=== PATIENT | female | born 1985 | race African-American/Black ===

== ENCOUNTER 2018-06-07 12:49 | Emergency (ER) | payer OTHER ==
[2018-06-07 13:00] VITALS: BP 129/80; PULSE 76; TEMP 98.8; BMI 33.3
== END 2018-06-07 15:00 | disposition home or self-care (01) ==
LOC: JER 12:49
PROC: 3E033NZ Introduction of Analgesics, Hypnotics, Sedatives into Peripheral Vein, Percutaneous Approach (ICD-10-PCS; principal; 2018-06-07)
PROC: 3E033GC Introduction of Other Therapeutic Substance into Peripheral Vein, Percutaneous Approach (ICD-10-PCS; 2018-06-07)
DX: O26.891 Other specified pregnancy related conditions, first trimester (principal); O20.0 Threatened abortion; Z3A.01 Less than 8 weeks gestation of pregnancy
CPT/HCPCS: 96374; 96375; 99281-25

== ENCOUNTER 2018-06-07 18:49 | Emergency (ER) | payer OTHER ==
[2018-06-07] MEDS ORDERED: SODIUM CHLORIDE 1,000 ML IV STA (19:09)
[2018-06-07] MEDS ORDERED: METOCLOPRAMIDE HCL INJECTION 10 MG/2 ML VIAL IVPUSH ONE (19:09)
[2018-06-07] MEDS ORDERED: ACETAMINOPHEN 1000 MG/100 ML VIAL (NON FORMULARY) IVPB ONE (19:09)
[2018-06-07] MEDS ORDERED: ACETAMINOPHEN INJECTION 100 ML IVPB ONE (19:34)
[2018-06-07 19:36] VITALS: BP 122/81; PULSE 74; TEMP 98.1; BMI 33.3
[2018-06-07 19:45] LABS: BASO % 1.7 % (0-2.0); EOS % 5.3 % (0-4.5); HEMATOCRIT 33.9 % (32.4-45.2); HEMOGLOBIN 11.1 GM/dl (10.7-15.3); LYMPH % 30.3 % (8-40); MCH 27.2 pg (25.7-33.7); MCHC 32.6 g/dl (32.0-36.0); MEAN CELL VOLUME 83.2 fl (80-96); MEAN PLT VOLUME 8.3 fl (7.5-11.1); MONO % 7.5 % (3.8-10.2); NEUT % 55.2 % (42.8-82.8); PLATELET COUNT 439 K/MM3 (134-434); RBC 4.07 M/mm3 (3.60-5.2); RDW 17.7 % (11.6-15.6); URINE APPEARANCE Clear; URINE BILIRUBIN Negative (NEGATIVE); URINE COLOR Yellow; URINE GLUCOSE (UA) Negative (NEGATIVE); URINE KETONE Negative (NEGATIVE); URINE LEUK ESTERASE Negative (NEGATIVE); URINE NITRITE Negative (NEGATIVE); URINE PROTEIN Negative (NEGATIVE); URINE UROBILINOGEN 0.2 (0.2-1.0); WHITE BLOOD COUNT 7.2 K/mm3 (4.0-10.8)
[2018-06-07 19:57] LABS: ALBUMIN 3.8 g/dl (3.5-5.0); ALK PHOS 58 U/L (32-92); ANION GAP 5 MMOL/L (8-16); BILIRUBIN,TOTAL 0.8 mg/dl (0.2-1.0); BLOOD UREA NITROGEN 14 mg/dl (7-18); CHLORIDE 104 mmol/L (98-107); CO2 24 mmol/L (22-28); CREATININE 0.7 mg/dl (0.6-1.3); GLUCOSE,RANDOM 89 mg/dl (74-106); POTASSIUM 4.1 mmol/L (3.5-5.1); SGOT/AST 25 U/L (10-42); SGPT/ALT 21 U/L (10-40); SODIUM 133 mmol/L (136-145); TOT PROT 7.7 g/dl (6.4-8.3)
--- NOTE | 2018-06-07 19:58 | PDOC ---
History of Present Illness - History of Present Illness Initial Comments: 06/07/18 20:22 The patient is a 33 year old female with no past medical history who presents to the ED with complaints of lower abdominal cramping and vaginal bleeding that began this morning. The patient reports a sharp, non-radiating pain in her lower abdomen as well as passing large clots today. Although she reports the bleeding has stopped she is still experiencing a lot of pain. She also reports some associated lightheadedness. She reports one prior which was normal and resulted in a full term, vaginal delivery despite some complications during labor. She also reports having hypertension through her . LMP was 05/29. [facility] She denies any recent illness, fevers, chills, nausea, vomiting, diarrhea , cough, SOB, chest pain, or urinary symptoms. <Melanie Marquez - Last Filed: 06/07/18 20:21> - General History Source: Patient Exam Limitations: No Limitations <Lei Pardo - Last Filed: 06/07/18 22:58> - General Chief Complaint: Nausea Stated Complaint: DIZZINESS,NAUSEA, Time Seen by Provider: 06/07/18 19:02 Past History <Melanie Marquez - Last Filed: 06/07/18 20:21> - Past Medical History Asthma: Yes COPD: No - Surgical History Abdominal Surgery: Yes (SLEEVE) - Reproductive History (#): 1 Para: 0 Spontaneous : 0 - Suicide/Smoking/Psychosocial Hx Smoking Status: No Smoking History: Never smoked Have you smoked in the past 12 months: No Number of Cigarettes Smoked Daily: 0 Hx Alcohol Use: No Drug/Substance Use Hx: No Substance Use Type: None <Lei Pardo - Last Filed: 06/07/18 22:58> - Past Medical History Allergies/Adverse Reactions: Allergies Allergy/AdvReac Type Severity Reaction Status Date / Time No Known Allergies Allergy Verified 06/07/18 19:04 Home Medications: Ambulatory Orders Acetaminophen [Tylenol] 650 mg PO Q4H PRN #20 tablet 06/07/18 Metoclopramide HCl [Reglan] 10 mg PO Q8H PRN #15 tablet 06/07/18 Vit Calc,Iron,Folic [ Vitamins] 1 each PO DAILY #30 tablet 09/ 24/18 Review of Systems - Review of Systems Able to Perform ROS?: Yes Comments:: 06/07/18 20:22 GENERAL/CONSTITUTIONAL: No fever or chills. No weakness. HEAD, EYES, EARS, NOSE AND THROAT: No change in vision. No ear pain or discharge. No sore throat. CARDIOVASCULAR: No chest pain or shortness of breath. RESPIRATORY: No cough, wheezing, or hemoptysis. GASTROINTESTINAL: (+) lower abdominal pain. No nausea, vomiting, diarrhea or constipation. GENITOURINARY: (+) vaginal bleeding. No dysuria, frequency, or change in urination. MUSCULOSKELETAL: No joint or muscle swelling or pain. No neck or back pain. SKIN: No rash NEUROLOGIC: (+) lightheadedness. No headache, vertigo, loss of consciousness, or change in strength/sensation. ENDOCRINE: No increased thirst. No abnormal weight change. HEMATOLOGIC/LYMPHATIC: No anemia, easy bleeding, or history of blood clots. ALLERGIC/IMMUNOLOGIC: No hives or skin allergy. <Melanie Marquez - Last Filed: 06/07/18 20:21> *Physical Exam - Vital Signs Last Vital Signs Temp Pulse Resp BP Pulse Ox 98.1 F 74 18 122/81 100 06/07/18 18:52 06/07/18 18:52 06/07/18 18:52 06/07/18 18:52 06/07/18 18:52 <AntonbritneyMelanie - Last Filed: 06/07/18 20:21> - Vital Signs Last Vital Signs Temp Pulse Resp BP Pulse Ox 98.1 F 74 18 122/81 100 06/07/18 18:52 06/07/18 18:52 06/07/18 18:52 06/07/18 18:52 06/07/18 18:52 <Lei Pardo - Last Filed: 06/07/18 22:58> ED Treatment Course - LABORATORY CBC & Chemistry Diagram: 06/07/18 19:23 06/07/18 19:23 - ADDITIONAL ORDERS Additional order review: Laboratory Results 06/07/18 06/07/18 19:23 19:23 Sodium 133 L Potassium 4.1 Chloride 104 Carbon Dioxide 24 Anion Gap 5 L BUN 14 Creatinine 0.7 Creat Clearance w eGFR > 60 Random Glucose 89 Calcium 9.0 Total Bilirubin 0.8 AST 25 ALT 21 Alkaline Phosphatase 58 Creatine Kinase Cancelled Total Protein 7.7 Albumin 3.8 Urine Color Yellow Urine Appearance Clear Urine pH 7.0 Ur Specific Fleming 1.010 Urine Protein Negative Urine Glucose (UA) Negative Urine Ketones Negative Urine Blood Negative Urine Nitrite Negative Urine Bilirubin Negative Urine Urobilinogen 0.2 Ur Leukocyte Esterase Negative 06/07/18 19:23 RBC 4.07 MCV 83.2 MCHC 32.6 RDW 17.7 H MPV 8.3 Neutrophils % 55.2 Lymphocytes % 30.3 Monocytes % 7.5 Eosinophils % 5.3 H Basophils % 1.7 - Medications Given in the ED: ED Medications Discontinued Medications Generic Name Dose Route Start Last Admin Trade Name Freq PRN Reason Stop Dose Admin Acetaminophen 1,000 mg 06/07/18 19:09 06/07/18 20:11 Ofirmev Injection - IVPB 06/07/18 19:10 1,000 mg ONCE ONE Administration Sodium Chloride 1,000 mls @ 1,000 mls/hr 06/07/18 19:09 06/07/18 19:40 Normal Saline - IV 06/07/18 20:08 1,000 mls/hr ASDIR STA Administration Metoclopramide HCl 10 mg 06/07/18 19:09 06/07/18 19:40 Reglan Injection - IVPUSH 06/07/18 19:10 10 mg ONCE ONE Administration <Melanie Marquez - Last Filed: 06/07/18 20:21> - LABORATORY CBC & Chemistry Diagram: 06/07/18 19:23 06/07/18 19:23 - RADIOLOGY Radiology Studies Ordered: Category Date Time Status TRANSVAGINAL US PREG [US] Stat Ultrasound 06/07/18 19:09 Ordered <Lei Pardo - Last Filed: 06/07/18 22:58> Medical Decision Making - Medical Decision Making 06/07/18 19:24 A portion of this note was documented by scribe services under my direction. I have reviewed the details of the note, within reason, and agree with the documentation with the following case summary and management plan written by me. Patient treated in the ED. Nursing notes are reviewed and incorporated into the medical decision-making. Vital signs reviewed. Peripheral IV access obtained by the nurse, laboratory studies are drawn and sent, reviewed and interpreted by myself. Vital Signs Temp Pulse Resp BP Pulse Ox 98.1 F 74 18 122/81 100 06/07/18 18:52 06/07/18 18:52 06/07/18 18:52 06/07/18 18:52 06/07/18 18:52 33-year-old female patient with past medical history of hypertension presents with nausea, vomiting, lower abdominal cramping and vaginal bleeding. The patient reported that she found out last week that she was . Her LMP was 04/28/2018. She is typically regular. She is now ~5 to 6 weeks as per dates. Noted today that she was developing nausea and dizziness this morning. Developed lower abdominal/pelvic cramping and passed a few blood clots. The bleedig has now stopped. However, pt feels nauseous. No fevers, chills. Denies dysuria. Denies abdominal pain now. Has not had a OB checkup yet. Will need to investigate first trimester vaginal bleeding. Differential includes ectopic , miscarriage. Will check beta HCG, type and screen (for Rh factor), and transvaginal ultrasound. The nausea is likely secondary to her . Check labs, give IVF, and reassess. 06/07/18 22:50 CBC, BMP 06/07/18 19:23 06/07/18 19:23 CMP Sodium 133 mmol/L (136-145) L 06/07/18 19:23 Potassium 4.1 mmol/L (3.5-5.1) 06/07/18 19:23 Chloride 104 mmol/L (98-107) 06/07/18 19:23 Carbon Dioxide 24 mmol/L (22-28) 06/07/18 19:23 Anion Gap 5 MMOL/L (8-16) L 06/07/18 19:23 BUN 14 mg/dl (7-18) 06/07/18 19:23 Creatinine 0.7 mg/dl (0.6-1.3) 06/07/18 19:23 Creat Clearance w eGFR > 60 (>60) 06/07/18 19:23 Random Glucose 89 mg/dl (74-106) 06/07/18 19:23 Calcium 9.0 mg/dl (8.4-10.2) 06/07/18 19:23 Total Bilirubin 0.8 mg/dl (0.2-1.0) 06/07/18 19:23 AST 25 U/L (10-42) 06/07/18 19:23 ALT 21 U/L (10-40) 06/07/18 19:23 Alkaline Phosphatase 58 U/L (32-92) 06/07/18 19:23 Creatine Kinase Cancelled 06/07/18 19:23 Total Protein 7.7 g/dl (6.4-8.3) 06/07/18 19: Albumin 3.8 g/dl (3.5-5.0) 06/07/18 19:23 Beta HCG, Quant 3390.0 mIU/ml 06/07/18 19:23 Blood Type, Rh (Baby) Blood Type A POSITIVE 06/07/18 19:30 Urine Test Results Urine Color Yellow 06/07/18 19: Urine Appearance Clear 06/07/18 19: Urine pH 7.0 (4.5-8) 06/07/18 19: Ur Specific Fleming 1.010 (1.005-1.025) 06/07/18 19:23 Urine Protein Negative (NEGATIVE) 06/07/18 19:23 Urine Glucose (UA) Negative (NEGATIVE) 06/07/18 19:23 Urine Ketones Negative (NEGATIVE) 06/07/18 19: Urine Blood Negative (NEGATIVE) 06/07/18 19: Urine Nitrite Negative (NEGATIVE) 06/07/18 19: Urine Bilirubin Negative (NEGATIVE) 06/07/18 19:23 Ur Leukocyte Esterase Negative (NEGATIVE) 06/07/18 19:23 Ultrasound reviewed: Intraurterine gestational sac like structure with a mean sac diameter of 4.8 mm that corresponds to a less than 6 weeks of gestation. No pole or yolk sac are identified. Correlation with serial quantitative serum beta hCG and follow-up ultrasound is needed for further evaluation. At this moment, will treat this as a threatened . I advised the patient not to have sex or insert tampons. The patient reports that [facility] I advised that we need to have the results repeated in 48 hours given these ultrasound findings. Pt states that she understands and will bring a copy. Return precautions given including worsening vaginal bleeding or worsening abdominal pain. <Lei Pardo - Last Filed: 06/07/18 22:58> *DC/Admit/Observation/Transfer - Attestations Scribe Attestion: 06/07/18 20:23 Documentation prepared by Melanie Marquez, acting as medical chemist for Lei Pardo MD. <Melanie Marquez - Last Filed: 06/07/18 20:21> - Discharge Dispostion Decision to Admit order: No <Lei Pardo - Last Filed: 06/07/18 22:58> Diagnosis at time of Disposition: Threatened miscarriage - Discharge Dispostion Disposition: HOME Condition at time of disposition: Stable - Prescriptions Prescriptions: Acetaminophen [Tylenol] 650 mg PO Q4H PRN #20 tablet PRN Reason: Pain Metoclopramide HCl [Reglan] 10 mg PO Q8H PRN #15 tablet PRN Reason: Nausea Vit Calc,Iron,Folic [ Vitamins] 1 each PO DAILY #30 tablet - Referrals Referrals: Venkata Wolf MD [Staff Physician] - - Patient Instructions Printed Discharge Instructions: DI for Threatened Additional Instructions: Please bring your copy of the results including your ultrasound to your MERCHANDISE COORDINATOR doctor tomorrow or in two days. You will require a repeat blood work (beta HCG) and ultrasound to determine to see how your fetus/baby is doing in 2 days. At this time, do not have sex or insert tampons until you are cleared by your doctors. Take a daily vitamin. For pain, you may take tylenol as prescribed. For nausea, you may take a tablet of reglan as prescribed. These medications are safe for . Drink plenty of fluids and rest. If you develop worsening vaginal bleeding, severe abdominal pain, please return to the ER for further evaluation.
== END 2018-06-07 22:59 | disposition home or self-care (01) ==
LOC: FER 18:49
PROC: 3E033NZ Introduction of Analgesics, Hypnotics, Sedatives into Peripheral Vein, Percutaneous Approach (ICD-10-PCS; principal; 2018-06-07)
PROC: 3E033GC Introduction of Other Therapeutic Substance into Peripheral Vein, Percutaneous Approach (ICD-10-PCS; 2018-06-07)
PROC: 3E0337Z Introduction of Electrolytic and Water Balance Substance into Peripheral Vein, Percutaneous Approach (ICD-10-PCS; 2018-06-07)
DX: O26.891 Other specified pregnancy related conditions, first trimester (principal); Z3A.01 Less than 8 weeks gestation of pregnancy; O20.0 Threatened abortion
CPT/HCPCS: 36415; 76817-TC; 80053; 81003; 84702; 85025; 86850; 86900; 86901; 87077; 87086; 99283-25; J0131; J7030

== ENCOUNTER 2018-12-04 06:56 | Emergency (ER) | payer OTHER ==
[2018-12-04 07:01] VITALS: TEMP 97.5; BMI 38.9
--- NOTE | 2018-12-04 07:37 | PDOC ---
Attending Attestation - Resident Resident Name: James Medina - ED Attending Attestation I have performed the following: I have examined & evaluated the patient, The case was reviewed & discussed with the resident, I agree w/resident's findings & plan, Exceptions are as noted - HPI HPI: 12/04/18 08:15 Ms Pompa is a 33 yo F who presents to the ER due to abdominal cramping and nausea No fevers or chills Pt feels very nauseous but has not vomited She felt that she might have diarrhea but did not (she contacted her OB who recommended that she eat bananas and toast) She was concerned that perhaps she has the flu because he partner has the flu. she did have sharp abdominal pain on the right side of the abdomen, this has since subsided She continues to have abdominal cramping in the lower abdomen, rated 3-4/10, no radiation to her back - Physicial Exam PE: 12/04/18 07:32 GENERAL: The patient is in no acute distress. ENT: Ears normal, nares patent, oropharynx clear without exudates. Moist mucous membranes. NECK: Normal range of motion, supple, no nuchal rigidity LUNGS: Breath sounds equal, clear to auscultation bilaterally. No wheezes, and no crackles. HEART:Regular rate and rhythm, normal S1 and S2 without murmur, rub or gallop. ABDOMEN: gravid abdomen, abd otherwise soft, nontender, normoactive bowel sounds. EXTREMITIES: Normal range of motion, no edema. NEUROLOGICAL: Cranial nerves II through XII grossly intact. Normal speech. No focal neurological deficits. SKIN: Warm, Dry, normal turgor, no rashes or lesions noted. 12/04/18 08:18 - Medical Decision Making 12/04/18 07:35 This is a 33 yo 30 week who presents to the ER with a complaint of ABDOMINAL CRAMPING and nausea who was sent from [facility] to the ER for evaluation for INFLUENZA with NO fever, no body aches Pt apparently was assessed in L&D and child is apparently fine Will swab for influenza Possibly billiary pathology no fever to suggest acute appendicitis Pt continues to be nauseous Will do: Labs IVF Reglan RUQ US Po challenge 12/04/18 09:04 Laboratory Tests 12/04/18 12/04/18 12/04/18 08:06 08:22 08:22 WBC 9.4 Hgb 11.1 Hct 31.8 L D Plt Count 256 D BUN 5 L Creatinine 0.6 AST 26 ALT 24 Influenza A (Rapid) Negative Influenza B (Rapid) Negative 12/04/18 09:38 Pt feels better Will discharge to home Follow up with PMD
[2018-12-04] MEDS ORDERED: SODIUM CHLORIDE 1,000 ML IV STA (07:56)
[2018-12-04] MEDS ORDERED: METOCLOPRAMIDE HCL INJECTION 10 MG/2 ML VIAL IVPUSH ONE (07:56)
[2018-12-04] MEDS ORDERED: METOCLOPRAMIDE HCL INJECTION 10 MG/2 ML VIAL ONE (08:12)
[2018-12-04 08:40] LABS: BASO % 0.5 % (0-2.0); EOS % 3.7 % (0-4.5); HEMATOCRIT 31.8 % (32.4-45.2); HEMOGLOBIN 11.1 GM/dL (10.7-15.3); LYMPH % 19.4 % (8-40); MCH 32.2 pg (25.7-33.7); MCHC 34.9 g/dl (32.0-36.0); MEAN CELL VOLUME 92.4 fl (80-96); MEAN PLT VOLUME 8.9 fl (7.5-11.1); MONO % 5.4 % (3.8-10.2); PLATELET COUNT 256 K/MM3 (134-434); RBC 3.44 M/mm3 (3.60-5.2); RDW 13.7 % (11.6-15.6); WHITE BLOOD COUNT 9.4 K/mm3 (4.0-10.0)
[2018-12-04 08:55] LABS: ALBUMIN 2.5 g/dl (3.4-5.0); ALK PHOS 80 U/L (45-117); ANION GAP 7 MMOL/L (8-16); BILIRUBIN,TOTAL < 0.1 mg/dL (0.2-1); BLOOD UREA NITROGEN 5 mg/dL (7-18); CALCIUM 8.1 mg/dL (8.5-10.1); CHLORIDE 107 mmol/L (98-107); CO2 23 mmol/L (21-32); CREATININE 0.6 mg/dL (0.55-1.3); GLUCOSE,RANDOM 76 mg/dL (74-106); SGOT/AST 26 U/L (15-37); SGPT/ALT 24 U/L (13-61); SODIUM 138 mmol/L (136-145); TOT PROT 6.5 g/dl (6.4-8.2)
--- NOTE | 2018-12-04 09:31 | PDOC ---
History of Present Illness - General Chief Complaint: Nausea Stated Complaint: NAUSEA,ABD PAIN Time Seen by Provider: 12/04/18 07:08 History Source: Patient Exam Limitations: No Limitations - History of Present Illness Initial Comments: 12/04/18 09:19 33 yo female 32 weeks , second , pmh of preclamsia and asthma presents to the ED from L&D for 1 day of abdominal cramping and nausea without vomiting. Pt concerned she may have the flu because her had flu s/s for the past 1 day. Pt does admit to right sided abdominal pain that resolved but continues to have mild nausea and abdominal cramping. Denies F/C, body aches, URI s/s, recent travel. Spoke with PCP regarding nausea who states to start BRAT diet Past History - Past Medical History Allergies/Adverse Reactions: Allergies Allergy/AdvReac Type Severity Reaction Status Date / Time No Known Allergies Allergy Verified 12/04/18 06:59 Home Medications: Ambulatory Orders Vitamins (Sjr) - 1 tab PO DAILY 10/08/18 Asthma: Yes COPD: No - Surgical History Abdominal Surgery: Yes (SLEEVE) - Reproductive History (#): 1 Para: 0 Spontaneous : 0 - Suicide/Smoking/Psychosocial Hx Smoking Status: No Smoking History: Never smoked Have you smoked in the past 12 months: No Number of Cigarettes Smoked Daily: 0 Information on smoking cessation initiated: No Hx Alcohol Use: No Drug/Substance Use Hx: No Substance Use Type: None *Physical Exam - Vital Signs Last Vital Signs Temp Pulse Resp BP Pulse Ox 97.5 F L 83 20 126/68 97 12/04/18 06:59 12/04/18 06:59 12/04/18 06:59 12/04/18 06:59 12/04/18 06:59 - Physical Exam General Appearance: Yes: Nourished, Appropriately Dressed. No: Apparent Distress HEENT: positive: EOMI, Normal ENT Inspection, Normal Voice, Pharynx Normal, Hearing Grossly Normal. negative: Pharyngeal Erythema, Tonsillar Exudate, Tonsillar Erythema, TM Bulging Neck: positive: Supple Respiratory/Chest: positive: Lungs Clear, Normal Breath Sounds. negative: Accessory Muscle Use, Rapid RR, Crackles, Rales, Rhonchi, Stridor, Wheezing Cardiovascular: positive: Regular Rhythm, Regular Rate, S1, S2. negative: Edema , JVD, Murmur Vascular Pulses: Dorsalis-Pedis (R): 4+, Doralis-Pedis (L): 4+ Gastrointestinal/Abdominal: positive: Normal Bowel Sounds, Flat, Soft, Distended. negative: Pulsatile Mass, Guarding, Rebound, Tenderness Lymphatic: negative: Adenopathy Musculoskeletal: positive: CVA Tenderness Extremity: positive: Normal Capillary Refill Integumentary: positive: Normal Color, Dry, Warm Neurologic: positive: Fully Oriented, Alert, Normal Mood/Affect, Normal Response Moderate Sedation - Procedure Monitoring Vital Signs: Procedure Monitoring Vital Signs Temperature 97.5 F L 12/04/18 06:59 Pulse Rate 83 12/04/18 06:59 Respiratory Rate 20 12/04/18 06:59 Blood Pressure 126/68 12/04/18 06:59 O2 Sat by Pulse Oximetry (%) 97 12/04/18 06:59 ED Treatment Course - LABORATORY CBC & Chemistry Diagram: 12/04/18 08:22 12/04/18 08:22 - ADDITIONAL ORDERS Additional order review: Laboratory Results 12/04/18 08:22 Sodium 138 Potassium 4.0 Chloride 107 Carbon Dioxide 23 Anion Gap 7 L BUN 5 L Creatinine 0.6 Creat Clearance w eGFR 115.13 Random Glucose 76 Calcium 8.1 L Total Bilirubin < 0.1 L AST 26 ALT 24 Alkaline Phosphatase 80 Total Protein 6.5 Albumin 2.5 L 12/04/18 08:22 RBC 3.44 L MCV 92.4 MCHC 34.9 RDW 13.7 MPV 8.9 Neutrophils % 71.0 Lymphocytes % 19.4 Monocytes % 5.4 Eosinophils % 3.7 Basophils % 0.5 - RADIOLOGY Radiology Studies Ordered: Category Date Time Status ABDOMEN US -LIMITED [US] Stat Ultrasound 12/04/18 07:55 Completed - Medications Given in the ED: ED Medications Discontinued Medications Generic Name Dose Route Start Last Admin Trade Name Freq PRN Reason Stop Dose Admin Sodium Chloride 1,000 mls @ 1,000 mls/hr 12/04/18 07:56 12/04/18 08:24 Normal Saline - IV 12/04/18 08:55 1,000 mls/hr ASDIR STA Administration Metoclopramide HCl 10 mg 12/04/18 07:56 12/04/18 08:25 Reglan Injection - IVPUSH 12/04/18 07:57 10 mg ONCE ONE Administration Medical Decision Making - Medical Decision Making 12/04/18 09:19 33 yo female 32 weeks , second , pmh of preclamsia and asthma presents to the ED from L&D for 1 day of abdominal cramping and nausea without vomiting. Pt concerned she may have the flu because her had flu s/s for the past 1 day. Pt does admit to right sided abdominal pain that resolved but continues to have mild nausea and abdominal cramping. Denies F/C, body aches, URI s/s, recent travel. Spoke with PCP regarding nausea who states to start BRAT diet L&D confirm fetus doing well Pt AOX3, NAD, non toxic appearing and resting comfortably in the ED DDX INLT: URI, Flu, Cholelithiasis, infection, normal Denies current abdominal pain/cramping but admits to mild nausea Will give fluids and reglan RUQ US negative for Cholelithiasis CBC and CMP WNL Negative influenza Pt continues to rest comfortably in the ED without complaints Negative workup for concerning etiology. Pt safe for DC home with PCP and Ob/ Product Director f/u with BRAT diet. Pt understands and agrees with plan *DC/Admit/Observation/Transfer Diagnosis at time of Disposition: Nausea, Abdominal cramping - Discharge Dispostion Disposition: HOME Condition at time of disposition: Stable Decision to Admit order: No - Referrals Referrals: Maude Tracy [Primary Care Provider] - - Patient Instructions Printed Discharge Instructions: DI for Abdominal Pain-Adult, DI for Nausea -- Adult Additional Instructions: Please make an appointment and see your Primary doctor and cytology manager doctor within the next 48 hours. Continue eating bananas, apple sauce and toast and increase your water intake. Take tylenol for pain and if fevers develop as well. Return to the ER for new or concerning symptoms including but not limited to: high fevers, abdominal pain, headaches, elevated blood pressure, confusion. Thank you - Post Discharge Activity
[2018-12-04 09:45] VITALS: BP 118/82; PULSE 82
== END 2018-12-04 09:45 | disposition home or self-care (01) ==
LOC: JER 06:56
PROC: 3E0337Z Introduction of Electrolytic and Water Balance Substance into Peripheral Vein, Percutaneous Approach (ICD-10-PCS; principal; 2018-12-04)
PROC: 3E033GC Introduction of Other Therapeutic Substance into Peripheral Vein, Percutaneous Approach (ICD-10-PCS; 2018-12-04)
DX: O26.893 Other specified pregnancy related conditions, third trimester (principal); R10.84 Generalized abdominal pain; R11.0 Nausea; Z3A.32 32 weeks gestation of pregnancy; Z98.84 Bariatric surgery status; Z87.09 Personal history of other diseases of the respiratory system
CPT/HCPCS: 36415; 76705-TC; 80053; 85025; 87804; 96361; 96374; 99283-25; J7030

== ENCOUNTER 2019-02-10 07:05 | Inpatient (IN) | payer OTHER ==
[2019-02-10] MEDS ORDERED: BUTORPHANOL TARTRATE 1 MG/ML VIAL IVPUSH ONE (07:45)
[2019-02-10] MEDS ORDERED: PROMETHAZINE HCL 25 MG/1 ML VIAL IVPUSH ONE (07:45)
[2019-02-10] MEDS ORDERED: DINOPROSTONE 10 MG VAGINAL SUPPOSITORY VG ONE (07:45)
[2019-02-10 08:21] LABS: BASO % 0.3 % (0-2.0); EOS % 1.6 % (0-4.5); HEMOGLOBIN 11.2 GM/dL (10.7-15.3); LYMPH % 16.4 % (8-40); MCH 30.1 pg (25.7-33.7); MEAN CELL VOLUME 91.1 fl (80-96); MEAN PLT VOLUME 9.4 fl (7.5-11.1); MONO % 7.3 % (3.8-10.2); NEUT % 74.4 % (42.8-82.8); PLATELET COUNT 254 K/MM3 (134-434); RBC 3.73 M/mm3 (3.60-5.2); RDW 14.8 % (11.6-15.6); WHITE BLOOD COUNT 10.3 K/mm3 (4.0-10.0)
--- NOTE | 2019-02-10 08:30 | PN ---
Progress Note (short form) - Note Progress Note: 33yo @ 41.1wks here for IOL SVE: 50//-3 Cervidil yuko Morales MD
[2019-02-10 08:32] VITALS: BMI 41.1
[2019-02-10 08:58] LABS: ALBUMIN 2.5 g/dl (3.4-5.0); BILIRUBIN,TOTAL 0.2 mg/dL (0.2-1); CALCIUM 8.4 mg/dL (8.5-10.1); CREATININE 0.6 mg/dL (0.55-1.3); TOT PROT 6.4 g/dl (6.4-8.2); URIC ACID 3.7 mg/dL (2.6-7.2)
[2019-02-10 09:21] LABS: INR 0.95 (0.83-1.09); PROTHROMBIN TIME (PATIENT) 11.2 SEC (9.7-13.0)
[2019-02-10 09:24] LABS: ACTIVATED PTT 28.2 SECONDS (25.2-36.5)
[2019-02-10] MEDS: ELECTROLYTE-148 SOLN 1,000 ML IV SCH ×3 (09:45→20:00)
[2019-02-10] MEDS ORDERED: BUTORPHANOL TARTRATE 2 MG/ML VIAL ONE ×2 (10:58→14:25)
[2019-02-10] MEDS ORDERED: AMPICILLIN SODIUM 2 GM VIAL ONE (10:59)
[2019-02-10] MEDS ORDERED: PROMETHAZINE HCL 25 MG/1 ML VIAL ONE ×2 (10:59→14:25)
[2019-02-10] MEDS ORDERED: AMPICILLIN - 2 GM in SODIUM CHLORIDE 100 ML IVPB ONE (11:15)
[2019-02-10] MEDS ORDERED: BUTORPHANOL TARTRATE 2 MG/ML VIAL IVPUSH ONE (14:30)
[2019-02-10] MEDS ORDERED: PROMETHAZINE HCL 25 MG/1 ML VIAL IVPB ONE (14:30)
[2019-02-10] MEDS ORDERED: AMPICILLIN SODIUM 1 GM VIAL ONE ×3 (15:05→23:31)
[2019-02-10] MEDS: AMPICILLIN - 1 GM in SODIUM CHLORIDE 100 ML IVPB SCH ×3 (15:10→23:15)
[2019-02-10] MEDS ORDERED: FENTANYL/BUPIVACAINE/NS/PF - PCEA - 50 ML DISP.SYRIN EP ONE ×2 (15:26→20:15)
--- NOTE | 2019-02-10 15:28 | PN ---
Progress Note (short form) - Note Progress Note: cx 4 cm , 80 vx -2 mr, fhr cat 1, irregular contraction, cervidil removed
--- NOTE | 2019-02-10 15:34 | HP ---
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 Weeks Gestation by Dates: 41.1 ...EDC by Dates: 02/02/19 ...EDC by Sono: 02/08/19 - Past Surgical History Hx Myomectomy: No Hx Transabdominal Cerclage: No - Smoking History Smoking history: Never smoked Have you smoked in the past 12 months: No Aproximately how many cigarettes per day: 0 - Alcohol/Substance Use Hx Alcohol Use: No Home Medications - Allergies Allergies/Adverse Reactions: Allergies Allergy/AdvReac Type Severity Reaction Status Date / Time No Known Allergies Allergy Verified 02/10/19 08:08 - Home Medications Home Medications: Ambulatory Orders Vitamins (Sjr) - 1 tab PO DAILY 10/08/18 Ferrous Sulfate [Iron] 325 mg PO DAILY 01/12/19 Albuterol Sulfate Inhaler - [Ventolin Hfa Inhaler -] 1 - 2 inh PO Q4H PRN Physical Exam - Maternity Vital Signs: Vital Signs Temperature 97.8 F 02/10/19 14:00 Pulse Rate 65 02/10/19 15:00 Respiratory Rate 20 02/10/19 15:00 Blood Pressure 115/61 02/10/19 15:00 O2 Sat by Pulse Oximetry (%) - Labs Lab Results: CBC, BMP 02/10/19 08:00 02/10/19 08:00 <Joel Bacon - Last Filed: 02/10/19 19:34> Past Medical History - Admission History Source: Patient Limitations to Obtaining History: No Limitations - Past Medical History Pulmonary: Yes: Asthma Infectious Disease: Yes: STD's (hx of chlamydia) - Past Surgical History Past Surgical History: Yes: Bariatric Surgery Hx Myomectomy: No Hx Transabdominal Cerclage: No - Alcohol/Substance Use History of Substance Use: reports: None - Social History Usual Living Arrangement: Yes: With Spouse History of Recent Travel: No Review of Systems - Review of Systems Constitutional: reports: No Symptoms Eyes: reports: No Symptoms HENT: reports: No Symptoms Neck: reports: No Symptoms Respiratory: reports: No Symptoms Gastrointestinal: reports: No Symptoms Genitourinary: reports: No Symptoms Breasts: reports: No Symptoms Reported Musculoskeletal: reports: No Symptoms Integumentary: reports: No Symptoms Neurological: reports: No Symptoms Endocrine: reports: No Symptoms Hematology/Lymphatic: reports: No Symptoms Psychiatric: reports: No Symptoms Physical Exam - Maternity Vital Signs: Vital Signs Temperature 98.7 F 02/10/19 18:00 Pulse Rate 77 02/10/19 18:45 Respiratory Rate 20 02/10/19 18:45 Blood Pressure 128/72 02/10/19 18:45 O2 Sat by Pulse Oximetry (%) 98 02/10/19 18:45 Constitutional: Yes: Well Nourished, No Distress, Calm Eyes: Yes: WNL, Conjunctiva Clear, EOM Intact HENT: Yes: WNL, Atraumatic, Normocephalic Neck: Yes: WNL, Supple, Trachea Midline Cardiovascular: Yes: WNL, Regular Rate and Rhythm Breast(s): Yes: WNL - Abdominal Exam/OB Fundal Height: 38 Number of Fetuses: Single Presentation: Vertex Contractions: No Intensity: Unaware Monitor Mode: External Heart Rate Location: [facility] Category: I Accelerations: Uniform Decelerations: None - Vaginal Exam/OB Vaginal Bleediing: No Speculum Exam: No Dilatation (cm): 1 cm Effacement (%): 50 Amniotic Membrane Status: Intact Presentation: Vertex/Position Station: -3 - Physical Exam Edema: Yes Edema: LLE: Trace, RLE: Trace Deep Tendon Reflex Grade: Normal +2 - Labs Lab Results: CBC, BMP 02/10/19 08:00 02/10/19 08:00 Hemorrhage Risk Assessment - Risk Factors Medium Risk Factors: Yes: None High Risk Factors: Yes: None Risk Score: 1 Risk Level: Medium Risk Problem List - Problems (1) Post term over 40 weeks Code(s): O48.0 - POST-TERM (2) Encounter for induction of labor Code(s): Z34.90 - ENCNTR FOR SUPRVSN OF NORMAL , UNSP, UNSP TRIMESTER (3) Obesity Code(s): E66.9 - OBESITY, UNSPECIFIED Qualifiers: Obesity type: due to excess calories Assessment/Plan admit for cervidil induction , risks discussed FH pain management
[2019-02-10] MEDS ORDERED: NALOXONE HCL 0.4 MG/ML VIAL IVPUSH PRN (16:05)
[2019-02-10] MEDS ORDERED: LIDO 2%/EPI 1:200000 PRESRVFRE (20 ML SDVIAL) ONE (16:07)
[2019-02-10] MEDS ORDERED: BUPIVACAINE HCL/PF 0.25% (2.5MG/ML) 10 ML VIAL ONE (16:07)
[2019-02-10] MEDS ORDERED: FENTANYL/BUPIVACAINE/NS/PF - PCEA - 50 ML DISP.SYRIN EP SCH (16:15)
[2019-02-10] MEDS ORDERED: ePHEDrine SULFATE 50 MG/1 ML AMPULE ONE (16:33)
[2019-02-10] MEDS ORDERED: OXYTOCIN 30 UNITS in 0.9% NS 30 UNIT/500 ML INFUS.BAG IVPB ONE (19:54)
[2019-02-10] MEDS ORDERED: OXYTOCIN 30 UNITS in 0.9% NS 30 UNIT/500 ML INFUS.BAG IVPB SCH (20:00)
--- NOTE | 2019-02-10 20:01 | PN ---
Progress Note (short form) - Note Progress Note: cx 5 cm ,80 vx -2 mr, fhr cat 1, contraction irregular and short duration , advised pitocin , risks and benfit discussed
[2019-02-10] MEDS ORDERED: OXYTOCIN 20 UNITS in 0.9% NS 20 UNIT/1,000 ML INFUS.BAG IV ONE (23:47)
[2019-02-10] MEDS ORDERED: BENZOCAINE 20% 57 GM BOTTLE TP PRN (23:58)
[2019-02-10] MEDS ORDERED: METHYLERGONOVINE MALEATE 0.2 MG/1 ML AMP IM PRN (23:58)
[2019-02-10] MEDS ORDERED: BISACODYL 10 MG SUPP.RECT RC PRN (23:58)
[2019-02-10] MEDS ORDERED: BENZOCAINE 28 GM HEMORRHOIDAL OINTMENT TP PRN (23:58)
[2019-02-10] MEDS ORDERED: WITCH HAZEL 50% (TUCKS) 40 PAD/JAR PAD TP PRN (23:58)
[2019-02-11] MEDS ORDERED: oxyCODONE HCL 5 MG TABLET PO PRN
--- NOTE | 2019-02-11 00:07 | PN ---
Delivery - Delivery Vaginal Delivery: Spontaneous Type of Anesthesia: Epidural Episiotomy/Laceration: None (haed delivered . UMAIR , ant and post, shoulder delivered with no difficulty , baby girl 9/9. placenta complete, no laceration, EBL 250 cc, no complication) Delivery, Single - [place] Feeding Plan Initial Plan: Elected not to breastfeed exclusively throughout hospitalization
[2019-02-11] MEDS: ACETAMINOPHEN 325 MG TABLET (FP) PO PRN ×3 (06:33→23:41)
[2019-02-11] MEDS: IBUPROFEN 600 MG TABLET (FP) PO PRN ×3 (06:34→23:43)
[2019-02-11] MEDS: OXYTOCIN 20 UNITS in 0.9% NS 20 UNIT/1,000 ML INFUS.BAG IV SCH ×2 (07:30)
[2019-02-11 08:30] LABS: BASO % 0.4 % (0-2.0); EOS % 0.4 % (0-4.5); HEMATOCRIT 31.8 % (32.4-45.2); HEMOGLOBIN 10.3 GM/dL (10.7-15.3); LYMPH % 10.3 % (8-40); MCH 29.8 pg (25.7-33.7); MCHC 32.5 g/dl (32.0-36.0); MEAN CELL VOLUME 91.8 fl (80-96); MONO % 6.6 % (3.8-10.2); NEUT % 82.3 % (42.8-82.8); PLATELET COUNT 259 K/MM3 (134-434); RBC 3.46 M/mm3 (3.60-5.2); RDW 14.8 % (11.6-15.6); WHITE BLOOD COUNT 14.4 K/mm3 (4.0-10.0)
[2019-02-11] MEDS: FERROUS SO4 325 MG TABLET (FP) PO SCH ×2 (09:23→21:26)
[2019-02-11] MEDS: PRENATAL VITAMINS W/ FOLIC ACID TABLET (FP) PO SCH (09:23)
[2019-02-11] MEDS ORDERED: SENNOSIDES/DOCUSATE COMBO (SENNA PLUS) TABLET (UD) PO PRN (22:00)
--- NOTE | 2019-02-12 06:10 | PN ---
Post Progress Note Post Day: 1 Type of Delivery: Vital Signs: Vital Signs Temperature 97.8 F 02/11/19 22:00 Pulse Rate 80 02/11/19 22:00 Respiratory Rate 18 02/11/19 22:00 Blood Pressure 104/58 L 02/11/19 22:00 O2 Sat by Pulse Oximetry (%) 95 02/10/19 23:30 Breast Exam: Yes: Soft Uterus: Yes: Fundus Firm Abdomen/GI: Yes: Abdomen soft Lochia: Yes: Rubra Lochia, amount: Small Extremities: Yes: Calves non-tender Perineum: Yes: Intact Activity: Ambulating - Labs Labs: CBC WBC 14.4 K/mm3 (4.0-10.0) H 02/11/19 07:50 RBC 3.46 M/mm3 (3.60-5.2) L 02/11/19 07:50 Hgb 10.3 GM/dL (10.7-15.3) L 02/11/19 07:50 Hct 31.8 % (32.4-45.2) L 02/11/19 07:50 MCV 91.8 fl (80-96) 02/11/19 07:50 MCH 29.8 pg (25.7-33.7) 02/11/19 07:50 MCHC 32.5 g/dl (32.0-36.0) 02/11/19 07:50 RDW 14.8 % (11.6-15.6) 02/11/19 07:50 Plt Count 259 K/MM3 (134-434) 02/11/19 07:50 MPV 9.0 fl (7.5-11.1) 02/11/19 07:50 Absolute Neuts (auto) 11.9 K/mm3 (1.5-8.0) H 02/11/19 07:50 Neutrophils % 82.3 % (42.8-82.8) 02/11/19 07:50 Lymphocytes % 10.3 % (8-40) D 02/11/19 07:50 Monocytes % 6.6 % (3.8-10.2) 02/11/19 07:50 Eosinophils % 0.4 % (0-4.5) 02/11/19 07:50 Basophils % 0.4 % (0-2.0) 02/11/19 07:50 Nucleated RBC % 0 % (0-0) 02/11/19 07:50 Assessment/Plan continue care ob reg diet
[2019-02-12] MEDS: ACETAMINOPHEN 325 MG TABLET (FP) PO PRN ×2 (07:42→11:40)
[2019-02-12] MEDS: IBUPROFEN 600 MG TABLET (FP) PO PRN ×2 (07:42→11:40)
[2019-02-12] MEDS: FERROUS SO4 325 MG TABLET (FP) PO SCH (09:40)
[2019-02-12] MEDS: PRENATAL VITAMINS W/ FOLIC ACID TABLET (FP) PO SCH (09:40)
[2019-02-12 09:57] VITALS: BP 104/68; PULSE 87; TEMP 98.4
--- NOTE | 2019-02-14 20:48 | DS ---
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: Vital Signs Temperature 98.4 F 02/12/19 09:55 Pulse Rate 87 02/12/19 09:55 Respiratory Rate 20 02/12/19 09:55 Blood Pressure 104/68 02/12/19 09:55 O2 Sat by Pulse Oximetry (%) 95 02/10/19 23:30 Constitutional: Yes: Well Nourished, No Distress, Calm Eyes: Yes: WNL, Conjunctiva Clear, EOM Intact HENT: Yes: WNL, Atraumatic, Normocephalic Neck: Yes: WNL, Supple, Trachea Midline Cardiovascular: Yes: WNL, Regular Rate and Rhythm Respiratory: Yes: WNL, Regular, CTA Bilaterally Gastrointestinal: Yes: WNL ...Rectal Exam: Yes: WNL Renal/: Yes: WNL External Genitalia: Yes: Normal ....Post : Yes: Uterus firm, Uterus non-tender, Slight lochia rubra Breast(s): Yes: WNL Musculoskeletal: Yes: WNL Extremities: Yes: WNL Edema: No Integumentary: Yes: WNL Neurological: Yes: WNL, Alert, Oriented ...Motor Strength: WNL Psychiatric: Yes: WNL, Alert, Oriented Labs: CBC, BMP 02/11/19 07:50 02/10/19 08:00 Delivery - Delivery Vaginal Delivery: No Problems (no complication), Spontaneous Type of Anesthesia: Epidural Episiotomy/Laceration: None EBL (cc): 250 Delivery, Single - Stages of Labor Date 1st Stage Initiatied: 02/10/19 Time 1st Stage Initiated: 16:25 Date 2nd Stage Initiated: 02/10/19 Time 2nd Stage Initiated: 23:45 Date of Delivery: 02/10/19 Time of Delivery: 23:51 Time Placenta Delivered: 23:55 Placenta: Yes: Spontaneous - 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 call [phone] Disposition: HOME - Home Medications Comprehensive Discharge Medication List: Ambulatory Orders Vitamins (Sjr) - 1 tab PO DAILY 10/08/18 Ferrous Sulfate [Iron] 325 mg PO DAILY 01/12/19 Albuterol Sulfate Inhaler - [Ventolin Hfa Inhaler -] 1 - 2 inh PO Q4H PRN
== END 2019-02-12 13:30 | disposition home or self-care (01) | DRG 560 ==
LOC: JLDR 07:05 → J3W 02-11 01:30
PROVIDERS: ADMIT Obstetrics & Gynecology; ATTEND Obstetrics & Gynecology
PROC: 10E0XZZ Delivery of Products of Conception, External Approach (ICD-10-PCS; principal; 2019-02-10)
DX: O48.0 Post-term pregnancy (principal); Z3A.40 40 weeks gestation of pregnancy; O99.214 Obesity complicating childbirth; E66.9 Obesity, unspecified; Z37.0 Single live birth
CPT/HCPCS: 36415; 59409; 80053; 84550; 85025; 85610; 85730; 86593; 86850; 86900; 86901

== ENCOUNTER 2020-04-02 12:16 | Emergency (ER) | payer OTHER ==
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
[2020-04-02 12:38] VITALS: BP 113/74; PULSE 77; TEMP 98.5; BMI 40.9
[2020-04-02] MEDS ORDERED: IBUPROFEN 400 MG TABLET (FP) PO ONE ×2 (12:58→12:59)
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
== END 2020-04-02 16:04 | disposition home or self-care (01) ==
LOC: JER 12:16
DX: R10.11 Right upper quadrant pain (principal); R07.9 Chest pain, unspecified; Z34.90 Encounter for supervision of normal pregnancy, unspecified, unspecified trimester; V89.2XXA Person injured in unspecified motor-vehicle accident, traffic, initial encounter
CPT/HCPCS: 36415; 71045-TC-FY; 76700-TC; 76817-TC; 84702; 84703; 99284-25

== ENCOUNTER 2020-07-26 17:51 | Emergency (ER) | payer OTHER ==
[2020-07-26 18:15] VITALS: BP 119/64; PULSE 66; TEMP 98; BMI 39.9
[2020-07-26 20:33] LABS: BASO % 0.6 % (0-2.0); HEMATOCRIT 39.9 % (32.4-45.2); HEMOGLOBIN 13.1 GM/dL (10.7-15.3); LYMPH % 27.4 % (8-40); MCH 29.4 pg (25.7-33.7); MCHC 32.8 g/dl (32.0-36.0); MEAN CELL VOLUME 89.7 fl (80-96); MEAN PLT VOLUME 8.8 fl (7.5-11.1); MONO % 5.2 % (3.8-10.2); NEUT % 63.8 % (42.8-82.8); PLATELET COUNT 370 K/MM3 (134-434); RBC 4.45 M/mm3 (3.60-5.2); RDW 13.6 % (11.6-15.6); WHITE BLOOD COUNT 9.4 K/mm3 (4.0-10.0)
[2020-07-26 20:39] LABS: EPI CELLS 2 /uL (0-25.1); HYALINE CASTS 0 /uL (0-3.1); URINE APPEARANCE CLEAR; URINE BACTERIA 520 /uL (0-1359); URINE BILIRUBIN NEGATIVE (NEGATIVE); URINE COLOR YELLOW; URINE GLUCOSE (UA) NEGATIVE (NEGATIVE); URINE KETONE NEGATIVE (NEGATIVE); URINE LEUK ESTERASE NEGATIVE (NEGATIVE); URINE NITRITE NEGATIVE (NEGATIVE); URINE PROTEIN NEGATIVE (NEGATIVE); URINE RBC 13 /uL (0-23.9); URINE UROBILINOGEN 0.2 mg/dL (0.2-1.0); URINE WBC 1 /uL (0-25.8)
[2020-07-26 20:51] LABS: POTASSIUM 4.6 mmol/L (3.5-5.1)
[2020-07-26 20:55] LABS: BLOOD UREA NITROGEN 10.9 mg/dL (7-18); CALCIUM 9.4 mg/dL (8.5-10.1)
[2020-07-26 20:58] LABS: CREATININE 0.8 mg/dL (0.55-1.3)
[2020-07-26 21:18] LABS: HCG,QUALITATIVE URINE POSITIVE
== END 2020-07-26 22:08 | disposition home or self-care (01) ==
LOC: JER 17:51
DX: O26.851 Spotting complicating pregnancy, first trimester (principal); Z3A.01 Less than 8 weeks gestation of pregnancy
CPT/HCPCS: 36415; 76817-TC; 80048; 81003; 84702; 84703; 85025; 86850; 86900; 86901; 87077; 87086; 99284-25

== ENCOUNTER 2020-08-02 13:32 | Emergency (ER) | payer OTHER ==
[2020-08-02 13:45] VITALS: BP 123/66; PULSE 91; BMI 40.7
== END 2020-08-02 15:22 | disposition home or self-care (01) ==
LOC: JERFT 13:32
DX: O03.9 Complete or unspecified spontaneous abortion without complication (principal)
CPT/HCPCS: 36415; 84702; 99283-25

== ENCOUNTER 2020-09-26 19:01 | Emergency (ER) | payer OTHER ==
[2020-09-26 19:12] VITALS: BMI 38.7
[2020-09-26 21:13] VITALS: TEMP 98.2
[2020-09-26 21:15] LABS: BASO % 0.7 % (0-2.0); EOS % 1.5 % (0-4.5); HEMATOCRIT 36.5 % (32.4-45.2); HEMOGLOBIN 11.9 GM/dL (10.7-15.3); LYMPH % 15.7 % (8-40); MCHC 32.6 g/dl (32.0-36.0); MEAN CELL VOLUME 89.1 fl (80-96); MEAN PLT VOLUME 8.7 fl (7.5-11.1); NEUT % 77.1 % (42.8-82.8); PLATELET COUNT 378 K/MM3 (134-434); RBC 4.09 M/mm3 (3.60-5.2); RDW 13.9 % (11.6-15.6); WHITE BLOOD COUNT 11.9 K/mm3 (4.0-10.0)
[2020-09-26 21:24] LABS: INR 0.99 (0.83-1.09)
[2020-09-26 21:27] LABS: ACTIVATED PTT 28.7 SECONDS (25.2-36.5)
[2020-09-26 21:53] LABS: ALBUMIN 3.5 g/dl (3.4-5.0); BLOOD UREA NITROGEN 7.4 mg/dL (7-18)
[2020-09-26 21:56] LABS: BILIRUBIN,TOTAL 0.3 mg/dL (0.2-1); TOT PROT 7.8 g/dl (6.4-8.2)
[2020-09-26 21:57] LABS: CREATININE 0.7 mg/dL (0.55-1.3)
[2020-09-27 00:35] LABS: BASO % 0.4 % (0-2.0); EOS % 1.7 % (0-4.5); HEMOGLOBIN 10.4 GM/dL (10.7-15.3); LYMPH % 21.1 % (8-40); MCH 29.5 pg (25.7-33.7); MCHC 33.5 g/dl (32.0-36.0); MEAN CELL VOLUME 88.2 fl (80-96); MEAN PLT VOLUME 8.5 fl (7.5-11.1); MONO % 4.9 % (3.8-10.2); NEUT % 71.9 % (42.8-82.8); PLATELET COUNT 315 K/MM3 (134-434); RBC 3.51 M/mm3 (3.60-5.2); RDW 13.7 % (11.6-15.6); WHITE BLOOD COUNT 10.3 K/mm3 (4.0-10.0)
[2020-09-27 02:37] LABS: PH,URINE 5.5 (5.0-8.0); URINE APPEARANCE Clear; URINE BILIRUBIN Negative (NEGATIVE); URINE COLOR Yellow; URINE GLUCOSE (UA) Negative (NEGATIVE); URINE KETONE Negative (NEGATIVE); URINE LEUK ESTERASE Negative (NEGATIVE); URINE NITRITE Negative (NEGATIVE); URINE PROTEIN 1+ (NEGATIVE); URINE UROBILINOGEN 0.2 mg/dL (0.2-1.0)
[2020-09-27 02:53] VITALS: BP 122/64; PULSE 72
[2020-09-27 02:53] LABS: EPI CELLS 2.4 /uL (0-25.1); URINE BACTERIA 39.1 /uL (0-1359); URINE RBC 42.2 /uL (0-23.9); URINE WBC 3.5 /uL (0-25.8)
== END 2020-09-27 02:53 | disposition home or self-care (01) ==
LOC: JER 19:01
PROC: 3E0333Z Introduction of Anti-inflammatory into Peripheral Vein, Percutaneous Approach (ICD-10-PCS; principal; 2020-09-26)
DX: O03.9 Complete or unspecified spontaneous abortion without complication (principal); O26.851 Spotting complicating pregnancy, first trimester
CPT/HCPCS: 36415; 76801-TC; 80053; 81003; 84702; 85025; 85610; 85730; 86850; 86900; 86901; 87086; 93005; 93010; 99285-25; J0131

== ENCOUNTER 2023-03-05 07:28 | Inpatient (IN) | payer OTHER ==
[2023-03-05] MEDS ORDERED: ONDANSETRON 4 MG/2 ML VIAL IVPUSH ONE ×2 (07:45→11:37)
[2023-03-05] MEDS ORDERED: ACETAMINOPHEN 1000 MG/100 ML BAG IVPB ONE ×2 (07:45→16:52)
[2023-03-05] MEDS ORDERED: FAMOTIDINE 20 MG/50 ML IVPB 20 MG/50 ML MG IVPB ONE ×2 (07:45→08:23)
[2023-03-05] MEDS ORDERED: LACTATED RINGERS SOLUTION 1000 ML INFUS.BAG IV ONE (07:50)
[2023-03-05 08:13] VITALS: BMI 41.5
[2023-03-05] MEDS ORDERED: ONDANSETRON 4 MG/2 ML VIAL ONE ×5 (08:23→17:09)
[2023-03-05] MEDS ORDERED: ACETAMINOPHEN INJECTION 100 ML IVPB ONE ×2 (08:23→17:26)
[2023-03-05 08:40] LABS: BASO % 0.5 % (0-2.0); EOS % 1.6 % (0-4.5); HEMOGLOBIN 12.2 GM/dL (10.7-15.3); LYMPH % 8.2 % (8-40); MCH 29.8 pg (25.7-33.7); MEAN CELL VOLUME 90.4 fl (80-96); MEAN PLT VOLUME 8.9 fl (7.5-11.1); MONO % 4.9 % (3.8-10.2); NEUT % 84.8 % (42.8-82.8); PLATELET COUNT 292 10^3/uL (134-434); RBC 4.09 M/mm3 (3.60-5.2); RDW 14.3 % (11.6-15.6)
[2023-03-05 08:46] LABS: INR 1.09 (0.83-1.09); PROTHROMBIN TIME (PATIENT) 12.6 SEC (9.7-13.0)
[2023-03-05 09:00] LABS: POTASSIUM 4.3 mmol/L (3.5-5.1)
[2023-03-05 09:02] LABS: ALBUMIN 3.3 g/dl (3.4-5.0); BLOOD UREA NITROGEN 12.7 mg/dL (7-18); CALCIUM 8.9 mg/dL (8.5-10.1)
[2023-03-05 09:05] LABS: CREATININE 0.7 mg/dL (0.55-1.3)
[2023-03-05 09:07] LABS: BILIRUBIN,TOTAL 0.5 mg/dL (0.2-1); TOT PROT 7.2 g/dl (6.4-8.2)
[2023-03-05] MEDS ORDERED: LACTATED RINGERS SOLUTION 1,000 ML IV SCH ×3 (11:30→16:52)
[2023-03-05] MEDS ORDERED: CEFTRIAXONE 1 GM/50 ML BAG ONE (11:31)
[2023-03-05 11:34] LABS: PH,URINE 6.5 (5.0-8.0); URINE APPEARANCE CLEAR; URINE BILIRUBIN NEGATIVE (NEGATIVE); URINE COLOR YELLOW; URINE GLUCOSE (UA) NEGATIVE (NEGATIVE); URINE KETONE NEGATIVE (NEGATIVE); URINE LEUK ESTERASE NEGATIVE (NEGATIVE); URINE NITRITE NEGATIVE (NEGATIVE); URINE PROTEIN NEGATIVE (NEGATIVE)
[2023-03-05] MEDS ORDERED: morphine CARPU-JECT 4 MG/1 ML DISP.SYRIN IVPUSH ONE (11:37)
[2023-03-05] MEDS ORDERED: ONDANSETRON 4 MG/2 ML VIAL IVPUSH PRN ×4 (11:38→16:52)
[2023-03-05] MEDS ORDERED: morphine SULFATE 4 MG/ML VIAL ONE (11:44)
[2023-03-05] MEDS ORDERED: BUPIVACAINE HCL/PF 0.25% (2.5MG/ML) 10 ML VIAL ONE (13:09)
[2023-03-05] MEDS ORDERED: ROCURONIUM BROMIDE 50 MG/5 ML SYRINGE ONE (13:50)
[2023-03-05] MEDS ORDERED: MIDAZOLAM HCL 2 MG/2 ML SINGLE DOSE VIAL ONE (13:50)
[2023-03-05] MEDS ORDERED: PROPOFOL 20 ML ONE (13:50)
[2023-03-05] MEDS ORDERED: DEXAMETHASONE SOD PHOSPHATE 4 MG/1 ML VIAL ONE (14:47)
[2023-03-05] MEDS ORDERED: BUPIVACAINE HCL/PF 0.25% (2.5MG/ML) 10 ML VIAL IJ ONE ×2 (15:06)
[2023-03-05] MEDS ORDERED: GLYCOPYRROLATE 0.2 MG/1 ML VIAL ONE (15:42)
[2023-03-05] MEDS ORDERED: NEOSTIGMINE METHYLSULFATE 0.5 MG/1 ML - 10 ML MDV ONE (15:42)
[2023-03-05 19:44] VITALS: RESP 18
[2023-03-05] MEDS ORDERED: IBUPROFEN 400 MG TABLET (FP) PO ONE (23:50)
[2023-03-06 08:00] LABS: BASO % 0.3 % (0-2.0); EOS % 0.2 % (0-4.5); HEMATOCRIT 35.2 % (32.4-45.2); HEMOGLOBIN 11.2 GM/dL (10.7-15.3); LYMPH % 10.6 % (8-40); MCH 28.7 pg (25.7-33.7); MCHC 31.8 g/dl (32.0-36.0); MEAN CELL VOLUME 90.3 fl (80-96); MEAN PLT VOLUME 9.3 fl (7.5-11.1); MONO % 4.7 % (3.8-10.2); NEUT % 84.2 % (42.8-82.8); PLATELET COUNT 288 10^3/uL (134-434); RBC 3.89 M/mm3 (3.60-5.2); RDW 14.2 % (11.6-15.6); WHITE BLOOD COUNT 8.1 K/mm3 (4.0-10.0)
[2023-03-06] MEDS ORDERED: oxyCODONE HCL 5 MG TABLET PO PRN (08:02)
[2023-03-06] MEDS ORDERED: IBUPROFEN 600 MG TABLET (FP) PO PRN (08:03)
[2023-03-06 08:07] LABS: POTASSIUM 4.6 mmol/L (3.5-5.1)
[2023-03-06 08:09] LABS: BLOOD UREA NITROGEN 8.5 mg/dL (7-18); CALCIUM 8.9 mg/dL (8.5-10.1)
[2023-03-06 08:10] LABS: ALBUMIN 2.9 g/dl (3.4-5.0)
[2023-03-06 08:12] LABS: PHOSPHOROUS 3.9 mg/dL (2.5-4.9)
[2023-03-06 08:13] LABS: CREATININE 0.7 mg/dL (0.55-1.3)
[2023-03-06 08:14] LABS: BILIRUBIN,TOTAL 1.9 mg/dL (0.2-1); TOT PROT 6.5 g/dl (6.4-8.2)
[2023-03-06] MEDS ORDERED: ACETAMINOPHEN 500 MG TABLET (FP) PO SCH (08:30)
[2023-03-06] MEDS: DOCUSATE SODIUM 100 MG CAPSULE (FP) PO SCH ×3 (09:10→21:40)
[2023-03-06] MEDS: SODIUM CHLORIDE 1,000 ML IV SCH (10:39)
[2023-03-06] MEDS: CEFTRIAXONE 1 GM in DEXTROSE 5%-WATER - 50 ML IVPB SCH (10:41)
[2023-03-06] MEDS: IBUPROFEN 600 MG TABLET (FP) PO PRN ×2 (13:48→20:45)
[2023-03-06 16:22] LABS: POTASSIUM 4.4 mmol/L (3.5-5.1)
[2023-03-06 16:25] LABS: ALBUMIN 3.1 g/dl (3.4-5.0); CALCIUM 9.2 mg/dL (8.5-10.1)
[2023-03-06 16:26] LABS: BLOOD UREA NITROGEN 8.7 mg/dL (7-18)
[2023-03-06 16:27] LABS: ALBUMIN 3.2 g/dl (3.4-5.0)
[2023-03-06 16:28] LABS: CREATININE 0.7 mg/dL (0.55-1.3)
[2023-03-06 16:30] LABS: BILIRUBIN,DIRECT 0.8 mg/dL (0.0-0.2); BILIRUBIN,TOTAL 1.2 mg/dL (0.2-1); TOT PROT 6.9 g/dl (6.4-8.2)
[2023-03-06 16:32] LABS: BILIRUBIN,TOTAL 1.3 mg/dL (0.2-1)
[2023-03-07] MEDS: MELATONIN 5 MG TABLETS PO PRN (00:52)
[2023-03-07] MEDS: DOCUSATE SODIUM 100 MG CAPSULE (FP) PO SCH ×3 (06:06→21:20)
[2023-03-07] MEDS: IBUPROFEN 600 MG TABLET (FP) PO PRN ×3 (06:11→21:35)
[2023-03-07] MEDS: SODIUM CHLORIDE 1,000 ML IV SCH ×2 (09:00→10:20)
[2023-03-07] MEDS: CEFTRIAXONE 1 GM in DEXTROSE 5%-WATER - 50 ML IVPB SCH (09:02)
[2023-03-07 09:55] LABS: HEMOGLOBIN 11.3 GM/dL (10.7-15.3); MCH 29.6 pg (25.7-33.7); MCHC 32.4 g/dl (32.0-36.0); MEAN CELL VOLUME 91.4 fl (80-96); PLATELET COUNT 291 10^3/uL (134-434); RBC 3.83 M/mm3 (3.60-5.2); RDW 14.3 % (11.6-15.6); WHITE BLOOD COUNT 7.3 K/mm3 (4.0-10.0)
[2023-03-07 10:16] LABS: BILIRUBIN,DIRECT 0.4 mg/dL (0.0-0.2)
[2023-03-07 10:19] LABS: BILIRUBIN,TOTAL 0.9 mg/dL (0.2-1); TOT PROT 6.6 g/dl (6.4-8.2)
[2023-03-08] MEDS: SODIUM CHLORIDE 1,000 ML IV SCH ×2 (00:54→11:01)
[2023-03-08] MEDS: MELATONIN 5 MG TABLETS PO PRN (02:12)
[2023-03-08] MEDS: DOCUSATE SODIUM 100 MG CAPSULE (FP) PO SCH ×2 (05:49→14:12)
[2023-03-08 09:29] LABS: BASO % 0.7 % (0-2.0); EOS % 4.6 % (0-4.5); HEMATOCRIT 32.8 % (32.4-45.2); HEMOGLOBIN 10.8 GM/dL (10.7-15.3); LYMPH % 25.8 % (8-40); MCH 29.6 pg (25.7-33.7); MCHC 32.8 g/dl (32.0-36.0); MEAN CELL VOLUME 90.2 fl (80-96); MEAN PLT VOLUME 9.1 fl (7.5-11.1); MONO % 7.2 % (3.8-10.2); NEUT % 61.7 % (42.8-82.8); PLATELET COUNT 270 10^3/uL (134-434); RBC 3.64 M/mm3 (3.60-5.2); RDW 13.7 % (11.6-15.6); WHITE BLOOD COUNT 6.9 K/mm3 (4.0-10.0)
[2023-03-08 09:54] LABS: POTASSIUM 4.2 mmol/L (3.5-5.1)
[2023-03-08 10:09] LABS: CALCIUM 8.7 mg/dL (8.5-10.1)
[2023-03-08 10:10] LABS: ALBUMIN 2.7 g/dl (3.4-5.0); BLOOD UREA NITROGEN 9.4 mg/dL (7-18)
[2023-03-08 10:12] LABS: BILIRUBIN,DIRECT 0.2 mg/dL (0.0-0.2); CREATININE 0.7 mg/dL (0.55-1.3)
[2023-03-08 10:14] LABS: BILIRUBIN,TOTAL 0.6 mg/dL (0.2-1); TOT PROT 5.9 g/dl (6.4-8.2)
[2023-03-08] MEDS: IBUPROFEN 600 MG TABLET (FP) PO PRN (11:03)
[2023-03-08 14:20] VITALS: BP 113/73; PULSE 72; TEMP 98
== END 2023-03-08 14:41 | disposition home or self-care (01) | DRG 263 ==
LOC: JER 07:28 → UNDOADMOB 10:00 → JERBED 10:00 → INTOOBSV 10:00 → JERBED 11:43 → UNDOADMOB 11:43 → SUATTDRO 12:25 → JASUSAT 12:25 → JERBED 12:27 → JASUSAT 18:40 → J6S 18:42
PROVIDERS: ADMIT Internal Medicine; ATTEND Internal Medicine
PROC: 0FT44ZZ Resection of Gallbladder, Percutaneous Endoscopic Approach (ICD-10-PCS; principal; 2023-03-05 16:00)
DX: K80.00 Calculus of gallbladder with acute cholecystitis without obstruction (principal); E66.01 Morbid (severe) obesity due to excess calories; Z68.41 Body mass index [BMI] 40.0-44.9, adult; J45.909 Unspecified asthma, uncomplicated; R74.01 Elevation of levels of liver transaminase levels; R79.89 Other specified abnormal findings of blood chemistry; K76.0 Fatty (change of) liver, not elsewhere classified
CPT/HCPCS: 36415; 74181-TC; 76705-TC; 80048; 80053; 80076; 81003; 82150; 82977; 83690; 83735; 84100; 84484; 84703; 85025; 85027; 85610; 85730; 86140; 86850; 86900; 86901; 87086; 87186; 87635; 88304-TC; 93005; 93010; 93975; 94760; 99285-25

== ENCOUNTER 2023-11-04 01:39 | Emergency (ER) | payer OTHER ==
[2023-11-04 01:48] VITALS: BP 115/62; PULSE 80; RESP 18; TEMP 98; BMI 45.3
[2023-11-04] MEDS ORDERED: AZITHROMYCIN 500 MG TABLET ONE (02:07)
[2023-11-04] MEDS: AZITHROMYCIN 250 MG TABLET PO ONE (02:10)
== END 2023-11-04 02:15 | disposition home or self-care (01) ==
LOC: FER 01:39
DX: R05.9 Cough, unspecified (principal); J01.00 Acute maxillary sinusitis, unspecified; J06.9 Acute upper respiratory infection, unspecified; Z20.822 Contact with and (suspected) exposure to COVID-19
CPT/HCPCS: 0241U-QW; 81025; 99283-25

== ENCOUNTER 2025-06-05 16:53 | Emergency (ER) | payer OTHER ==
[2025-06-05 17:16] VITALS: BP 128/85; PULSE 65; RESP 18; TEMP 98.1; BMI 37.9
[2025-06-05] MEDS ORDERED: TETRACAINE 0.5% OPHTH SOLN 2 ML BOTTLE ONE (18:06)
[2025-06-05] MEDS ORDERED: FLUORESCEIN NA 1 EA STRIP ONE (18:07)
[2025-06-05] MEDS: FLUORESCEIN NA 1 EA STRIP OS ONE (18:20)
[2025-06-05] MEDS: TETRACAINE 0.5% HCL 0.6ML DROPPER.BOTTLE OS ONE (18:20)
== END 2025-06-05 18:51 | disposition home or self-care (01) ==
LOC: FER 16:53
DX: S05.02XA Injury of conjunctiva and corneal abrasion without foreign body, left eye, initial encounter (principal); H53.8 Other visual disturbances; H53.142 Visual discomfort, left eye; T54.91XA Toxic effect of unspecified corrosive substance, accidental (unintentional), initial encounter
CPT/HCPCS: 99283-25